=== PATIENT | male | born 1950 | race Caucasian/White ===

== ENCOUNTER → 2018-03-31 | Outpatient (CLI) | payer MEDICARE, OTHER ==
[~2018-03-31] MED LIST: ALB0.5 INH; ALB18R INH; AMOX500T10 PO; ASP81 PO; BECL8.7A2 IH; BECL8.7A2 INH; BECL8.7A6 INH; CHOL400T55 PO; FIBE1TAB3 PO; FLUT16SP19 NS; FLUT16SP20 NS; FLUT9.9S; LOR5/325 PO; MOME220A3 INH; MON10 PO; MONT10TA4 PO; MULT-27 PO; MULT1CAP41 PO; NAPR-723 PO; OMEG500C5 PO; PNEU0.5D3 IM; PSYL1PAC23 PO; SILD100T59 PO; TRIA10.8 NS; UBID100C9 PO
--- NOTE | 2018-03-31 13:08 | RADIOLOGY IMAGING REPORT ---
FACILITY: [facility] - [place] PATIENT NAME: Loren Geller : 1950 MR: [id number] V: [id number] EXAM DATE: ORDERING PHYSICIAN: TANK HAQUE TECHNOLOGIST: Location: [facility] Patient: Loren Geller : 1950 Visit/Account:[id number] Date of Sevice: 03/31/2018 3 Views left index finger INDICATION: Injury. Persistent pain. COMPARISON: None Available FINDINGS: 3 views of the left index finger are obtained. No acute fracture or dislocation is seen. Joint spaces are maintained. No focal soft tissue abnormality. IMPRESSION: 1. No acute/subacute fracture-dislocation of the left index finger. Report Dictated By: Quinton Matthews at 03/31/2018 1:01 PM Report E-Signed By: Quinton Matthews at 03/31/2018 1:03 PM WSN:[email or web address]
== END ==
LOC: RAD 09:46
PROVIDERS: ATTEND Internal Medicine
DX: S60.022A Contusion of left index finger without damage to nail, initial encounter (principal)